=== PATIENT | female | born 1930 | race Caucasian/White ===

== ENCOUNTER 2019-08-18 14:18 | Inpatient (IN) ==
[2019-08-18] MEDS ORDERED: SODIUM CHLORIDE 0.9% 1,000 ML IV STA (16:49)
[2019-08-18 18:56] LABS: Basophils % 0.4 % (0.0-0.8); Eosinophils # 0.1 10*3/uL (0.0-0.87); Eosinophils % 1.2 % (0.00-10.9); Hematocrit 41.6 VOL% (35.7-47.0); Hemoglobin 13.7 GM/DL (12.0-16.0); Immature Granulocytes % 0.5 %; Immature Granulocytes Absolute 0.05 #; Mean Corpuscular HGB Conc 32.9 GM/DL (32-36); Mean Corpuscular Volume 87.2 FL (87-102); Mean Platelet Volume 9.6 FL (9.6-12.0); Monocytes % 6.1 % (1.7-12.7); Neutrophils % 82.8 % (38.7-73.9); Platelet Count 355 T/CUMM (130-400); Red Blood Count 4.77 MC/CUMM (3.8-5.5); Red Cell Distribution Width 14.1 % (9.3-17.3); White Blood Count 10.7 T/CUMM (4-12)
[2019-08-18 19:05] LABS: PT Patient Result 11.3 SECS (9.6-12.2)
[2019-08-18 19:16] LABS: Alanine Aminotransferase 20 U/L (13-56); Albumin 3.3 G/DL (3.4-5.0); Alkaline Phosphatase 109 U/L (45-117); Aspartate Amino Transferase 19 U/L (0-37); Blood Urea Nitrogen 63 MG/DL (7-18); CKMB % 6.5 %; Calcium 8.5 MG/DL (8.5-10.1); Estimated Glom Filtration Rate 7 ML/MIN; Glucose 83 MG/DL (74-106); Osmolality,Calculated 271.2 MOS/KG (273-304); Total Protein 8.6 G/DL (6.4-8.3); Troponin I < 0.015 NG/ML (0.00-0.045)
[2019-08-18] MEDS ORDERED: DEXT 5% NACL 0.9% KCL 20 MEQ 20 MEQ/1,000 ML BAG IV SCH (20:00)
[2019-08-18] MEDS ORDERED: DOCUSATE SODIUM 100 MG CAPSULE PO PRN (20:18)
[2019-08-18] MEDS ORDERED: ONDANSETRON 4 MG/2 ML VIAL IV PRN (20:18)
[2019-08-18] MEDS ORDERED: ACETAMINOPHEN 325 MG TABLET PO PRN (20:18)
[2019-08-18] MEDS ORDERED: ZALEPLON 5 MG CAPSULE PO PRN (20:18)
[2019-08-18] MEDS ORDERED: guaiFENesin/DM ER 600-30 MG TABLET PO PRN (20:18)
[2019-08-18 22:43] LABS: Apearance,Urine CLOUDY (Clear); Bacteria,Urine Few /HPF (Few); Bilirubin,Urine Negative (Negative); Blood, Urine Moderate mg/dL (Negative); Glucose,Urine (UA) Negative (Negative); Hyaline Casts,Urine 16 /LPF (0-3); Ketones,Urine Negative (Negative); Mucus,Urine Occasional /LPF (Occasional); Nitrite,Urine Negative (Negative); Protein,Urine 30 MG/DL; RBC,Urine 23 /HPF (0-4); Urine Color Yellow (Yellow); Urine Specific Gravity 1.008 (1.001-1.035); Urine Urobilinogen < 2.0 EU/DL (0.2-1.0); WBC,Urine 366 /HPF (0-6)
[2019-08-19] MEDS: cefTRIAXone 1,000 MG in SYRINGE 1 EACH IV SCH (00:53)
[2019-08-19] MEDS: DEXTROSE 5% NACL 0.9% 1,000 ML IV SCH ×3 (00:53→23:12)
[2019-08-19 05:06] LABS: Basophils # 0.1 10*3/uL (0.0-0.2); Basophils % 0.6 % (0.0-0.8); Eosinophils # 0.2 10*3/uL (0.0-0.87); Eosinophils % 2.5 % (0.00-10.9); Hematocrit 35.7 VOL% (35.7-47.0); Hemoglobin 11.5 GM/DL (12.0-16.0); Immature Granulocytes % 0.4 %; Immature Granulocytes Absolute 0.04 #; Lymphocytes # 0.8 10*3/uL (1.4-4.0); Lymphocytes % 8.9 % (21.3-54.2); Mean Corpuscular HGB Conc 32.2 GM/DL (32-36); Mean Corpuscular Volume 86.9 FL (87-102); Mean Platelet Volume 9.8 FL (9.6-12.0); Neutrophils % 78.6 % (38.7-73.9); Platelet Count 297 T/CUMM (130-400); Red Blood Count 4.11 MC/CUMM (3.8-5.5); Red Cell Distribution Width 14.1 % (9.3-17.3); White Blood Count 8.9 T/CUMM (4-12)
[2019-08-19 05:24] LABS: Calcium 7.5 MG/DL (8.5-10.1); Osmolality,Calculated 288.8 MOS/KG (273-304)
[2019-08-19] MEDS: PANTOPRAZOLE 40 MG TABLET PO SCH (09:17)
[2019-08-20] MEDS: cefTRIAXone 1,000 MG in SYRINGE 1 EACH IV SCH (01:41)
[2019-08-20 06:31] LABS: Basophils # 0.1 10*3/uL (0.0-0.2); Basophils % 0.7 % (0.0-0.8); Eosinophils # 0.3 10*3/uL (0.0-0.87); Eosinophils % 4.8 % (0.00-10.9); Hematocrit 31.5 VOL% (35.7-47.0); Immature Granulocytes % 0.6 %; Immature Granulocytes Absolute 0.04 #; Lymphocytes # 0.9 10*3/uL (1.4-4.0); Lymphocytes % 12.4 % (21.3-54.2); Mean Corpuscular HGB Conc 31.7 GM/DL (32-36); Mean Corpuscular Volume 88.2 FL (87-102); Mean Platelet Volume 10.3 FL (9.6-12.0); Monocytes % 10.5 % (1.7-12.7); Platelet Count 281 T/CUMM (130-400); Red Blood Count 3.57 MC/CUMM (3.8-5.5); White Blood Count 7.1 T/CUMM (4-12)
[2019-08-20 06:43] LABS: Calcium 7.2 MG/DL (8.5-10.1); Osmolality,Calculated 287.3 MOS/KG (273-304)
[2019-08-20] MEDS ORDERED: POTASSIUM CHLORIDE 20 MEQ TABLET PO ONE (09:46)
[2019-08-20] MEDS: PANTOPRAZOLE 40 MG TABLET PO SCH (10:05)
[2019-08-20] MEDS: DEXTROSE 5% NACL 0.9% 1,000 ML IV SCH (12:35)
[2019-08-21] MEDS: cefTRIAXone 1,000 MG in SYRINGE 1 EACH IV SCH (02:40)
[2019-08-21] MEDS: DEXTROSE 5% NACL 0.9% 1,000 ML IV SCH (05:28)
[2019-08-21] MEDS: PANTOPRAZOLE 40 MG TABLET PO SCH (09:34)
[2019-08-21 12:30] VITALS: BP 125/61
== END 2019-08-21 13:05 | disposition home health service (06) | DRG 683 ==
LOC: N.ED 14:18 → N.EDINP 20:18 → SUATTDRO 20:18 → N.5E 20:56 → UNDODISIN 08-20 12:45 → N.5E 08-21 02:43
PROVIDERS: ADMIT Internal Medicine Cardiovascular Disease; ATTEND Internal Medicine Nephrology